=== PATIENT | female | born 1995 | race Hispanic/Latino ===

== ENCOUNTER 2020-10-13 20:10 | Emergency (ER) | payer BC ==
--- OUTSIDE RECORDS SUMMARY | 2020-10-13 20:12 | XMS REPORT | Continuity of Care Document ---
:1995 Author Organization Formerly [facility] Address [address] [place] [address] [address] [place] [address] Care Team Providers Name Role Phone Unavailable Unavailable Unavailable Problems Condition Condition Condition Status Onset Resolution Last Treating Co mments Source Name Details Category Date Date Treatment Clinician Date Pain, Pain, Diagnosis Active [facility] Sprain of Sprain of Diagnosis Active [facility] right right [facility] knee, knee, [facility] unspecifie unspecifie l d d Outpati ligament, ligament, ent initial initial Clinics encounter encounter Tear of Tear of Diagnosis Active [facility] - meniscus meniscus [facility] a of right of right l knee, knee, Outpati unspecifie unspecifie en t d tear d tear Clinics type, type, unspecifie unspecifie d whether d whether old or old or current current tear, tear, initial initial encounter encounter Allergies, Adverse Reactions, Alerts Allergy Allergy Status Severity Reaction(s) Onset Inactive Treating Comm ents Source Name Type Date Date Clinician codeine Adverse Active Info Not [facility] Reaction Available [facility] Medications Ordered Filled Start Stop Current Ordering Indication Dosage Frequency Signature Comments Components Source Medication Medication Date Date Medication? Clinician (SIG) Name Name Blisovi 24 Blisovi 24 Yes Jerome (Prior [id number] Gabapentin Gabapentin Yes Jerome not [facility] Ondansetron Ondansetron Yes Jerome not [facility] Amoxicillin Amoxicillin Yes Jerome not [facility] -Pot -Pot [facility] defined [facility] - Clavulanate Clavulanate [facility] Tramadol Tramadol Yes Jerome not [facility] HCl HCl [facility] defined [facility] Celecoxib Celecoxib Yes Jerome not [facility] defined [facility] ent Clinics MetFORMIN MetFORMIN Yes Jerome not [facility] HCl ER HCl ER [facility] defined [facility] ent [facility] Procedures This patient has no known procedures. Encounters Start End Encounter Admission Attending Care Care Encounter Source Date/Time Date/Time Type Type Clinicians Facility Department ID 2020-10-06 [id number] 2020-09-24 2020-09-24 Outpatient [id number] 00:00:00 00[facility]00:[address] [facility] 2019-06-10 2019-06-10 [id number] [facility] 10:00:00 10:00:00 [facility] ent Clinics Results This patient has no known results.
--- NOTE | 2020-10-13 21:43 | ER ---
Nurse's Notes [facility] Name: Rita Eduardo Age: 24 yrs Sex: Female : 1995 Arrival Date: 10/13/2020 Time: 20:12 Bed 16 Private MD: Diagnosis: Dermatitis, unspecified-contact dermaitis Presentation: 10/13 20:27 Chief complaint: Patient states: this morning woke up with rash and hives around her iw gastric bypass incision site, had surgery a week ago , has a lot of itching. Coronavirus screen: At this time, the client does not indicate any symptoms associated with coronavirus-19. Ebola Screen: Patient negative for fever greater than or equal to 101.5 degrees Fahrenheit, and additional compatible Ebola Virus Disease symptoms Patient denies exposure to infectious person. Patient denies travel to an Ebola-affected area in the 21 days before illness onset. No symptoms or risks identified at this time. Initial Sepsis Screen: Does the patient meet any 2 criteria? No. Patient's initial sepsis screen is negative. Does the patient have a suspected source of infection? No. Patient's initial sepsis screen is negative. Risk Assessment: Do you want to hurt yourself or someone else? Patient reports no desire to harm self or others. Onset of symptoms was October 13, 2020. 20:27 Method Of Arrival: Ambulatory iw 20:27 Acuity: NAZ 4 iw 21:15 Anaphylaxis evaluation, no signs or symptoms of anaphylaxis were noted. rr5 21:15 Onset: The symptoms/episode began/occurred gradually. rr5 Triage Assessment: 21:05 General: Appears in no apparent distress. Behavior is calm, cooperative, appropriate rr5 for age. 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 - Social history:: Smoking status: Patient denies any tobacco usage or history of. - Family history:: not pertinent. Screenin:05 Abuse screen: Denies threats or abuse. Denies injuries from another. Nutritional rr5 screening: No deficits noted. Tuberculosis screening: No symptoms or risk factors identified. Fall Risk None identified. Total Chacon Fall Scale indicates No Risk (0-24 pts). Assessment: 21:05 General: Appears in no apparent distress. comfortable, Behavior is calm, cooperative, rr5 appropriate for age. Pain: Denies pain. Neuro: Level of Consciousness is awake, alert, obeys commands, Oriented to person, place, time. Cardiovascular: Capillary refill < 3 seconds Patient's skin is warm and dry. 21:05 Respiratory: Airway is patent Respiratory effort is even, unlabored, Respiratory rr5 pattern is regular, symmetrical, Derm: Skin temperature is warm Rash noted that is itchy, papular, red, raised, on chest and abdomen. Musculoskeletal: Capillary refill < 3 seconds. 21:55 Reassessment: Patient appears in no apparent distress at this time. Patient is alert, rr5 oriented x 3, equal unlabored respirations, skin warm/dry/pink. discharge instruction given and explained without complaints made. Vital Signs: 20:27 BP 108 / 80; Pulse 98; Resp 16; Temp 98.6; Pulse Ox 100% on R/A; Weight 97.07 kg; iw Height 5 ft. 2 in. (157.48 cm); 21:05 BP 110 / 70; Pulse 90; Resp 17; Pulse Ox 99% ; rr5 20:27 Body Mass Index 39.14 (97.07 kg, 157.48 cm) iw ED Course: 20:12 Patient arrived in ED. es 20:28 Triage completed. iw 21:05 Black Goldman, RN is Primary Nurse. rr5 21:05 Patient has correct armband on for positive identification. Placed in gown. Bed in low rr5 position. Call light in reach. 21:10 No provider procedures requiring assistance completed. Patient did not have IV access rr5 during this emergency room visit. 21:15 Arm band placed on right wrist. rr5 21:16 Brigido Martin MD is Attending Physician. ma2 Administered Medications: 21:48 Drug: Benadryl (diphenhydrAMINE) 50 mg Route: IM; Site: left deltoid; rr5 21:50 Follow up: Response: Medication administered at discharge. rr5 21:48 Drug: predniSONE 40 mg Route: PO; rr5 21:50 Follow up: Response: Medication administered at discharge. rr5 Outcome: 21:42 Discharge ordered by . ma2 21:55 Discharged to home ambulatory. rr5 21:55 Condition: stable 21:55 Discharge instructions given to patient, Instructed on discharge instructions, follow up and referral plans. medication usage, Demonstrated understanding of instructions, follow-up care, medications, Prescriptions given X 2. 21:56 Patient left the ED. rr5 Signatures: Kiana Michel Irene, RN RN iw Brigido Martin MD MD ma2 Black Goldman RN RN rr5
--- NOTE | 2020-10-13 21:43 | EDPHYS ---
Physician Documentation [facility] Name: Rita Eduardo Age: 24 yrs Sex: Female : 1995 Arrival Date: 10/13/2020 Time: 20:12 Bed 16 Private MD: ED Physician Brigido Martin HPI: 10/13 21:40 This 24 yrs old Female presents to ER via Ambulatory with complaints of ma2 Allergic Reaction. 21:40 The patient presents with contact dermatitis . Onset: The symptoms/episode ma2 began/occurred gradually, 1 week(s) ago. Associated signs and symptoms: Pertinent negatives: dysphagia, headache, Light headed. Severity of symptoms: At their worst the symptoms were very mild in the emergency department the symptoms have improved. The patient has not experienced similar symptoms in the past. allergic to latix, and has been using latix binder to abdomen here with rash over abdomin. 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 - Social history:: Smoking status: Patient denies any tobacco usage or history of. - Family history:: not pertinent. ROS: 21:40 Constitutional: Negative for fever, chills, and weight loss. ma2 21:40 All other systems are negative. Exam: 21:40 Constitutional: This is a well developed, well nourished patient who is awake, alert, ma2 and in no acute distress. Chest/axilla: Normal chest wall appearance and motion. Nontender with no deformity. No lesions are appreciated. Cardiovascular: Regular rate and rhythm with a normal S1 and S2. No gallops, murmurs, or rubs. Normal PMI, no JVD. No pulse deficits. Respiratory: Lungs have equal breath sounds bilaterally, clear to auscultation and percussion. No rales, rhonchi or wheezes noted. No increased work of breathing, no retractions or nasal flaring. Abdomen/GI: Soft, non-tender, with normal bowel sounds. No distension or tympany. No guarding or rebound. No evidence of tenderness throughout. Female : Normal external genitalia. Skin: rasied hives on abdominal area, otherwise Warm, dry with normal turgor. Normal color with no rashes, no lesions, and no evidence of cellulitis. MS/ Extremity: Pulses equal, no cyanosis. Neurovascular intact. Full, normal range of motion. Vital Signs: 20:27 BP 108 / 80; Pulse 98; Resp 16; Temp 98.6; Pulse Ox 100% on R/A; Weight 97.07 kg; iw Height 5 ft. 2 in. (157.48 cm); 21:05 BP 110 / 70; Pulse 90; Resp 17; Pulse Ox 99% ; rr5 20:27 Body Mass Index 39.14 (97.07 kg, 157.48 cm) iw MDM: 21:16 Patient medically screened. ma2 21:40 Differential diagnosis: Mastocystosis non IgE mediated drug reaction urticaria, ma2 Vasovagal Reactions. Data reviewed: vital signs, nurses notes. Counseling: I had a detailed discussion with the patient and/or guardian regarding: the historical points, exam findings, and any diagnostic results supporting the discharge/admit diagnosis, the presence of at least one elevated blood pressure reading (>120/80) during this emergency department visit, the need for outpatient follow up. Response to treatment: the patient's symptoms have markedly improved after treatment. Administered Medications: 21:48 Drug: Benadryl (diphenhydrAMINE) 50 mg Route: IM; Site: left deltoid; rr5 21:50 Follow up: Response: Medication administered at discharge. rr5 21:48 Drug: predniSONE 40 mg Route: PO; rr5 21:50 Follow up: Response: Medication administered at discharge. rr5 Disposition: 10/13/20 21:42 Discharged to Home. Impression: Dermatitis, unspecified - contact dermaitis. - Condition is Stable. - Discharge Instructions: Contact Dermatitis, [id number]. - Prescriptions for Benadryl 25 mg Oral Capsule - take 1 capsule by ORAL route every 6 hours As needed; 30 tablet. Medrol (Dawit) 4 mg Oral Tablets, Dose Pack - take 1 tablet by ORAL route as directed - follow package instructions; 1 packet. - Medication Reconciliation Form, Thank You Letter, Antibiotic Education, Prescription Opioid Use form. - Follow up: Private Physician; When: Tomorrow; Reason: If symptoms return. Signatures: Liana Gomez RN RN iw Brigido Martin MD MD ma2 Black Goldman RN RN rr5 Corrections: (The following items were deleted from the chart) 21:56 21:42 10/13/2020 21:42 Discharged to Home. Impression: Dermatitis, unspecified - rr5 contact dermaitis. Condition is Stable. Forms are Medication Reconciliation Form, Thank You Letter, Antibiotic Education, Prescription Opioid Use. Follow up: Private Physician; When: Tomorrow; Reason: If symptoms return. ma2
[2020-10-13] MEDS ORDERED: DIPHENHYDRAMINE 50 MG/ML VIAL ONE (22:03)
[2020-10-13] MEDS ORDERED: predniSONE 20 MG TAB ONE (22:03)
[2020-10-13 23:11] VITALS: BP 108/80; TEMP 98.6; O2SAT 100
== END 2020-10-13 21:56 | disposition home or self-care (01) ==
LOC: ER 20:10
DX: L25.9 Unspecified contact dermatitis, unspecified cause (principal); Z88.5 Allergy status to narcotic agent; Z91.040 Latex allergy status
CPT/HCPCS: 96372; 99283; J1200; J7512